=== PATIENT | male | born 1985 | race Caucasian/White ===

== ENCOUNTER 2019-09-30 13:49 | Observation (INO) ==
[2019-09-30] MEDS ORDERED: PROMETHAZINE 25 MG/1 ML VIAL IM STA (15:27)
[2019-09-30] MEDS ORDERED: HYDROmorphone 2 MG/1 ML VIAL IV STA ×2 (15:27→17:08)
[2019-09-30 15:33] LABS: Basophils # 0.1 10*3/uL (0.0-0.2); Basophils % 0.4 % (0.0-0.8); Eosinophils % 0.3 % (0.00-10.9); Hematocrit 42.7 VOL% (42.0-52.0); Hemoglobin 13.6 GM/DL (14.0-18.0); Immature Granulocytes % 1.9 %; Immature Granulocytes Absolute 0.27 #; Lymphocytes % 21.3 % (21.2-54.2); Mean Corpuscular HGB Conc 31.9 GM/DL (32-36); Mean Corpuscular Volume 94.3 FL (87-102); Mean Platelet Volume 10.3 FL (9.6-12.0); Monocytes % 7.2 % (1.7-12.7); Neutrophils % 68.9 % (38.7-73.9); Platelet Count 173 T/CUMM (130-400); Red Blood Count 4.53 MC/CUMM (3.8-5.5); White Blood Count 13.9 T/CUMM (4-12)
[2019-09-30] MEDS ORDERED: DEXTROSE 50% 25 GM/50 ML VIAL IV PRN (15:38)
[2019-09-30] MEDS ORDERED: GLUCAGON 1 MG VIAL IM PRN (15:38)
[2019-09-30 15:53] LABS: Bilirubin,Total 0.4 MG/DL (0.2-1.0); Calcium 8.3 MG/DL (8.5-10.1); Osmolality,Calculated 278.5 MOS/KG (273-304); Total Protein 6.7 G/DL (6.4-8.3)
[2019-09-30 16:04] LABS: PT Patient Result 10.8 SECS (9.8-11.9)
[2019-09-30 16:06] LABS: Thyroid Stimulating Hormone 0.13 uIU/ml (0.358-3.74)
[2019-09-30 17:43] LABS: Lymphocytes,CSF 33 %; Monocytes,CSF 67 %
[2019-09-30 17:44] LABS: Appearance,CSF Clear; Red Blood Cell,CSF < 1 C/CUMM; White Blood Cell,CSF 33 C/CUMM
[2019-09-30] MEDS: HYDROmorphone 2 MG/1 ML VIAL IV PRN ×2 (20:20→23:35)
[2019-09-30] MEDS: PANTOPRAZOLE 40 MG TABLET PO SCH (22:25)
[2019-09-30] MEDS: AMITRIPTYLINE 10 MG TABLET PO SCH (22:25)
[2019-09-30 23:09] LABS: Apearance,Urine Slightly Hazy (Clear); Bacteria,Urine Occasional /HPF (Few); Bilirubin,Urine Negative (Negative); Blood, Urine Negative (Negative); Glucose,Urine (UA) Negative (Negative); Ketones,Urine Negative (Negative); Mucus,Urine Few /LPF (Occasional); Nitrite,Urine Negative (Negative); Protein,Urine Negative; RBC,Urine 10 /HPF (0-4); Squamous Epithelial Cell,Urine Occasional /HPF (0-10); Urine Color Yellow (Yellow); Urine Specific Gravity 1.027 (1.001-1.035); Urine Urobilinogen < 2.0 EU/DL (0.2-1.0); WBC,Urine 1 /HPF (0-6)
[2019-09-30] MEDS: PROMETHAZINE 25 MG/1 ML VIAL IM PRN (23:43)
[2019-10-01] MEDS: HYDROmorphone 2 MG/1 ML VIAL IV PRN ×6 (04:02→23:13)
[2019-10-01] MEDS: PROMETHAZINE 25 MG/1 ML VIAL IM PRN ×2 (06:24→20:17)
[2019-10-01 07:34] LABS: Basophils % 0.2 % (0.0-0.8); Eosinophils # 0.1 10*3/uL (0.0-0.87); Eosinophils % 1.1 % (0.00-10.9); Hematocrit 41.6 VOL% (42.0-52.0); Hemoglobin 13.4 GM/DL (14.0-18.0); Immature Granulocytes % 1.6 %; Immature Granulocytes Absolute 0.21 #; Lymphocytes % 15.4 % (21.2-54.2); Mean Corpuscular HGB Conc 32.2 GM/DL (32-36); Mean Corpuscular Volume 90.6 FL (87-102); Mean Platelet Volume 10.1 FL (9.6-12.0); Monocytes % 6.9 % (1.7-12.7); Neutrophils % 74.8 % (38.7-73.9); Platelet Count 204 T/CUMM (130-400); Red Blood Count 4.59 MC/CUMM (3.8-5.5); Red Cell Distribution Width 13.1 % (9.3-17.3); White Blood Count 12.9 T/CUMM (4-12)
[2019-10-01 07:55] LABS: Albumin 2.9 G/DL (3.4-5.0); Bilirubin,Total 0.9 MG/DL (0.2-1.0); Calcium 8.3 MG/DL (8.5-10.1); Osmolality,Calculated 280.4 MOS/KG (273-304); Total Protein 6.3 G/DL (6.4-8.3)
[2019-10-01] MEDS: PANTOPRAZOLE 40 MG TABLET PO SCH (09:48)
[2019-10-01] MEDS: DIVALPROEX 500 MG TABLET PO SCH ×2 (10:00→20:24)
[2019-10-01] MEDS: ACYCLOVIR INJ 750 MG in SODIUM CHLORIDE 0.9% 250 ML IV SCH ×2 (12:40→17:10)
[2019-10-01] MEDS: INSULIN REGULAR 100 UNIT/ML SUBCUT SCH ×2 (17:03→23:15)
[2019-10-01] MEDS: AMITRIPTYLINE 10 MG TABLET PO SCH (20:24)
[2019-10-01 21:15] VITALS: BP 144/70
== END 2019-10-01 23:52 | disposition home or self-care (01) ==
LOC: N.ED 13:49 → INTOOBSV 19:17 → N.EDINP 19:17 → N.3E 19:23
PROVIDERS: ADMIT Internal Medicine; ATTEND Internal Medicine

== ENCOUNTER 2020-12-15 17:39 | Observation (INO) ==
[2020-12-15] MEDS ORDERED: SODIUM CHLORIDE 0.9% 1,000 ML IV STA (19:17)
[2020-12-15] MEDS ORDERED: ONDANSETRON 4 MG/2 ML VIAL IV STA (19:17)
[2020-12-15 20:33] LABS: Basophils # 0.1 10*3/uL (0.0-0.2); Basophils % 0.6 % (0.0-0.8); Eosinophils # 0.5 10*3/uL (0.0-0.87); Eosinophils % 4.7 % (0.00-10.9); Hematocrit 47.2 VOL% (42.0-52.0); Hemoglobin 15.5 GM/DL (14.0-18.0); Immature Granulocytes % 0.8 %; Immature Granulocytes Absolute 0.08 #; Lymphocytes # 2.8 10*3/uL (1.4-4.0); Lymphocytes % 27.9 % (21.2-54.2); Mean Corpuscular HGB Conc 32.8 GM/DL (32-36); Mean Corpuscular Volume 93.1 FL (87-102); Mean Platelet Volume 10.7 FL (9.6-12.0); Monocytes % 8.4 % (1.7-12.7); Neutrophils % 57.6 % (38.7-73.9); Platelet Count 328 T/CUMM (130-400); Red Blood Count 5.07 MC/CUMM (3.8-5.5); Red Cell Distribution Width 14.8 % (9.3-17.3); White Blood Count 10.1 T/CUMM (4-12)
[2020-12-15 20:45] LABS: Bilirubin,Urine Negative (Negative); Blood, Urine Negative (Negative); Glucose,Urine (UA) >=500 mg/dL (Negative); Ketones,Urine Negative (Negative); Mucus,Urine Occasional /LPF (Occasional); Nitrite,Urine Negative (Negative); Protein,Urine Negative; RBC,Urine 1 /HPF (0-4); Squamous Epithelial Cell,Urine Occasional /HPF (0-10); Urine Appearance CLEAR (Clear); Urine Color Straw (Yellow); Urine Specific Gravity 1.029 (1.001-1.035); Urine Urobilinogen < 2.0 EU/DL (0.2-1.0)
[2020-12-15 20:56] LABS: Albumin 3.9 G/DL (3.4-5.0); Bilirubin,Total 0.5 MG/DL (0.20-1.00); Calcium 9.6 MG/DL (8.5-10.1); Osmolality,Calculated 282.9 MOS/KG (273-304); Potassium 3.8 MMOL/L (3.5-5.1)
[2020-12-15] MEDS ORDERED: INSULIN REGULAR 100 UNIT/ML SUBCUT STA ×3 (21:27→23:06)
[2020-12-15] MEDS ORDERED: PIPERACILLIN/TAZOBACTAM 3,375 MG in SODIUM CHLORIDE 0.9% 100 ML IV STA (21:27)
[2020-12-16] MEDS ORDERED: SODIUM CHLORIDE 0.9% 1,000 ML IV STA (00:47)
[2020-12-16] MEDS ORDERED: FAMOTIDINE 20 MG/2 ML VIAL IV STA (00:49)
[2020-12-16] MEDS ORDERED: diphenhydrAMINE 50 MG/1 ML VIAL IV STA (00:50)
[2020-12-16] MEDS ORDERED: diphenhydrAMINE 50 MG/1 ML VIAL ONE (00:51)
[2020-12-16] MEDS ORDERED: ACETAMINOPHEN 325 MG TABLET PO PRN (01:31)
[2020-12-16] MEDS ORDERED: ONDANSETRON 4 MG/2 ML VIAL IV PRN (01:31)
[2020-12-16] MEDS ORDERED: hydrALAZINE 20 MG/1 ML VIAL IV PRN (01:31)
[2020-12-16] MEDS ORDERED: DEXTROSE 50% 25 GM/50 ML VIAL IV PRN (01:31)
[2020-12-16] MEDS ORDERED: GLUCAGON 1 MG VIAL IM PRN (01:31)
[2020-12-16] MEDS: SODIUM CHLORIDE 0.9% 1,000 ML IV SCH ×3 (02:34→17:30)
[2020-12-16 04:56] LABS: PT Patient Result 11.2 SECS (10.5-12.0)
[2020-12-16 05:11] LABS: Albumin 3.5 G/DL (3.4-5.0); Bilirubin,Total 0.5 MG/DL (0.20-1.00); Calcium 8.9 MG/DL (8.5-10.1); Osmolality,Calculated 275.5 MOS/KG (273-304); Potassium 3.7 MMOL/L (3.5-5.1); Risk Ratio 6.37; Thyroid Stimulating Hormone 1.75 uIU/ml (0.358-3.74); Total Protein 7.4 G/DL (6.4-8.2); VLDL Cholesterol 41.2 MG/DL
[2020-12-16 05:41] LABS: Hepatitis B Surface Ag Quant < 0.10 Index; Hepatitis B Surface Ag Result Non-Reactive (NonReactive); Hepatitis C Virus Ab Quant 0.03 Index; Hepatitis C Virus Ab Result Non-Reactive (NonReactive)
[2020-12-16] MEDS: INSULIN LISPRO 100 UNIT/ML SUBCUT SCH ×8 (05:44→21:44)
[2020-12-16] MEDS ORDERED: INSULIN LISPRO 100 UNIT/ML SUBCUT SCH (07:30)
[2020-12-16] MEDS ORDERED: INSULIN GLARGINE 100 UNIT/ML SUBCUT SCH (09:00)
[2020-12-16] MEDS: ENOXAPARIN 40 MG/0.4 ML SYRINGE SUBCUT SCH (09:22)
[2020-12-16] MEDS: PANTOPRAZOLE 40 MG TABLET PO SCH (09:23)
[2020-12-16] MEDS: hydroCHLOROthiazide 25 MG TABLET PO SCH (13:30)
[2020-12-16] MEDS ORDERED: TOPIRAMATE 25 MG TABLET PO PRN (15:27)
[2020-12-16] MEDS ORDERED: INFLUENZA VIRUS VACCINE 0.5 ML SYRINGE IM ONE (17:18)
[2020-12-16] MEDS: NYSTATIN 500,000 UNIT/5 ML UDCUP PO SCH ×2 (17:30→21:45)
[2020-12-16] MEDS: EZETIMIBE 10 MG TABLET PO SCH (21:45)
[2020-12-16] MEDS: AMITRIPTYLINE 50 MG TABLET PO SCH (21:45)
[2020-12-16] MEDS: ACETAZOLAMIDE 500 MG PO SCH (21:45)
[2020-12-16] MEDS: MUPIROCIN 2% OINT 22 GM TUBE TOP SCH (21:45)
[2020-12-16] MEDS: NYSTATIN CREAM 15 GM TUBE TOP SCH (21:45)
[2020-12-17] MEDS: INSULIN LISPRO 100 UNIT/ML SUBCUT SCH ×9 (00:24→20:20)
[2020-12-17] MEDS: SODIUM CHLORIDE 0.9% 1,000 ML IV SCH ×3 (02:30→17:40)
[2020-12-17 06:46] LABS: Basophils % 0.2 % (0.0-0.8); Eosinophils # 0.3 10*3/uL (0.0-0.87); Hematocrit 39.9 VOL% (42.0-52.0); Hemoglobin 13.1 GM/DL (14.0-18.0); Immature Granulocytes % 0.7 %; Immature Granulocytes Absolute 0.04 #; Lymphocytes # 1.6 10*3/uL (1.4-4.0); Lymphocytes % 28.1 % (21.2-54.2); Mean Corpuscular HGB Conc 32.8 GM/DL (32-36); Mean Platelet Volume 10.1 FL (9.6-12.0); Monocytes % 8.7 % (1.7-12.7); Neutrophils % 57.3 % (38.7-73.9); Platelet Count 176 T/CUMM (130-400); Red Blood Count 4.29 MC/CUMM (3.8-5.5); Red Cell Distribution Width 14.9 % (9.3-17.3); White Blood Count 5.8 T/CUMM (4-12)
[2020-12-17 07:05] LABS: Albumin 2.9 G/DL (3.4-5.0); Bilirubin,Total 0.8 MG/DL (0.20-1.00); Osmolality,Calculated 280.8 MOS/KG (273-304); Potassium 3.4 MMOL/L (3.5-5.1); Total Protein 6.5 G/DL (6.4-8.2)
[2020-12-17] MEDS ORDERED: POTASSIUM CHLORIDE 20 MEQ TABLET PO ONE (07:48)
[2020-12-17] MEDS ORDERED: MAGNESIUM SULF RIDER 2 GM/50 ML PREMIX IV ONE (07:48)
[2020-12-17] MEDS: INSULIN GLARGINE 100 UNIT/ML SUBCUT SCH (09:24)
[2020-12-17] MEDS: NYSTATIN 500,000 UNIT/5 ML UDCUP PO SCH ×4 (09:25→20:19)
[2020-12-17] MEDS: ENOXAPARIN 40 MG/0.4 ML SYRINGE SUBCUT SCH (09:27)
[2020-12-17] MEDS: OLMESARTAN 20 MG TABLET PO SCH (09:27)
[2020-12-17] MEDS: hydroCHLOROthiazide 25 MG TABLET PO SCH (09:27)
[2020-12-17] MEDS: PANTOPRAZOLE 40 MG TABLET PO SCH (09:27)
[2020-12-17] MEDS: NITROFURANTOIN MACRO/MONO 100 MG CAPSULE PO SCH (09:27)
[2020-12-17] MEDS: MUPIROCIN 2% OINT 22 GM TUBE TOP SCH ×3 (09:28→21:05)
[2020-12-17] MEDS: NYSTATIN CREAM 15 GM TUBE TOP SCH ×2 (09:28→20:21)
[2020-12-17] MEDS: ACETAZOLAMIDE 500 MG PO SCH ×2 (09:28→20:20)
[2020-12-17] MEDS: AMITRIPTYLINE 50 MG TABLET PO SCH (20:19)
[2020-12-17] MEDS: EZETIMIBE 10 MG TABLET PO SCH (20:19)
[2020-12-18] MEDS: INSULIN LISPRO 100 UNIT/ML SUBCUT SCH ×9 (00:13→21:53)
[2020-12-18] MEDS: SODIUM CHLORIDE 0.9% 1,000 ML IV SCH ×2 (05:05→12:08)
[2020-12-18 05:08] LABS: Basophils % 0.2 % (0.0-0.8); Eosinophils # 0.2 10*3/uL (0.0-0.87); Eosinophils % 3.8 % (0.00-10.9); Hematocrit 40.9 VOL% (42.0-52.0); Hemoglobin 13.2 GM/DL (14.0-18.0); Immature Granulocytes % 0.8 %; Immature Granulocytes Absolute 0.05 #; Lymphocytes # 1.6 10*3/uL (1.4-4.0); Lymphocytes % 26.8 % (21.2-54.2); Mean Corpuscular HGB Conc 32.3 GM/DL (32-36); Mean Corpuscular Volume 94.2 FL (87-102); Mean Platelet Volume 10.3 FL (9.6-12.0); Monocytes % 8.6 % (1.7-12.7); Neutrophils % 59.8 % (38.7-73.9); Platelet Count 184 T/CUMM (130-400); Red Blood Count 4.34 MC/CUMM (3.8-5.5); Red Cell Distribution Width 14.6 % (9.3-17.3); White Blood Count 6.1 T/CUMM (4-12)
[2020-12-18 05:40] LABS: Albumin 2.9 G/DL (3.4-5.0); Bilirubin,Total 0.6 MG/DL (0.20-1.00); Osmolality,Calculated 277.8 MOS/KG (273-304); Potassium 3.2 MMOL/L (3.5-5.1); Total Protein 6.6 G/DL (6.4-8.2)
[2020-12-18] MEDS ORDERED: POTASSIUM CHLORIDE 20 MEQ TABLET PO ONE (07:13)
[2020-12-18] MEDS: INSULIN GLARGINE 100 UNIT/ML SUBCUT SCH ×2 (09:12→12:22)
[2020-12-18] MEDS: NYSTATIN 500,000 UNIT/5 ML UDCUP PO SCH ×3 (09:13→16:36)
[2020-12-18] MEDS: OLMESARTAN 20 MG TABLET PO SCH (09:13)
[2020-12-18] MEDS: NITROFURANTOIN MACRO/MONO 100 MG CAPSULE PO SCH (09:14)
[2020-12-18] MEDS: ENOXAPARIN 40 MG/0.4 ML SYRINGE SUBCUT SCH (09:14)
[2020-12-18] MEDS: hydroCHLOROthiazide 25 MG TABLET PO SCH (09:14)
[2020-12-18] MEDS: PANTOPRAZOLE 40 MG TABLET PO SCH (09:14)
[2020-12-18] MEDS: ACETAZOLAMIDE 500 MG PO SCH ×2 (09:15→21:53)
[2020-12-18] MEDS: NYSTATIN CREAM 15 GM TUBE TOP SCH (09:56)
[2020-12-18] MEDS: MUPIROCIN 2% OINT 22 GM TUBE TOP SCH (09:56)
[2020-12-18] MEDS: AMITRIPTYLINE 50 MG TABLET PO SCH (21:52)
[2020-12-18] MEDS: EZETIMIBE 10 MG TABLET PO SCH (21:52)
[2020-12-19] MEDS: MUPIROCIN 2% OINT 22 GM TUBE TOP SCH ×3 (00:16→22:25)
[2020-12-19] MEDS: NYSTATIN CREAM 15 GM TUBE TOP SCH ×3 (00:16→22:28)
[2020-12-19] MEDS: NYSTATIN 500,000 UNIT/5 ML UDCUP PO SCH ×5 (00:16→22:28)
[2020-12-19 04:53] LABS: Basophils % 0.5 % (0.0-0.8); Eosinophils # 0.3 10*3/uL (0.0-0.87); Eosinophils % 4.5 % (0.00-10.9); Hematocrit 42.1 VOL% (42.0-52.0); Hemoglobin 13.7 GM/DL (14.0-18.0); Immature Granulocytes Absolute 0.06 #; Lymphocytes # 1.8 10*3/uL (1.4-4.0); Lymphocytes % 28.8 % (21.2-54.2); Mean Corpuscular HGB Conc 32.5 GM/DL (32-36); Mean Platelet Volume 10.3 FL (9.6-12.0); Neutrophils % 56.2 % (38.7-73.9); Platelet Count 204 T/CUMM (130-400); Red Blood Count 4.48 MC/CUMM (3.8-5.5); Red Cell Distribution Width 14.7 % (9.3-17.3); White Blood Count 6.2 T/CUMM (4-12)
[2020-12-19 05:18] LABS: Bilirubin,Total 0.5 MG/DL (0.20-1.00); Calcium 8.7 MG/DL (8.5-10.1); Osmolality,Calculated 276.1 MOS/KG (273-304); Potassium 3.7 MMOL/L (3.5-5.1)
[2020-12-19] MEDS: ENOXAPARIN 40 MG/0.4 ML SYRINGE SUBCUT SCH (08:18)
[2020-12-19] MEDS: NITROFURANTOIN MACRO/MONO 100 MG CAPSULE PO SCH (08:18)
[2020-12-19] MEDS: PANTOPRAZOLE 40 MG TABLET PO SCH (08:18)
[2020-12-19] MEDS: OLMESARTAN 20 MG TABLET PO SCH (08:19)
[2020-12-19] MEDS: INSULIN GLARGINE 100 UNIT/ML SUBCUT SCH ×2 (08:19→09:28)
[2020-12-19] MEDS: hydroCHLOROthiazide 25 MG TABLET PO SCH (08:21)
[2020-12-19] MEDS: INSULIN LISPRO 100 UNIT/ML SUBCUT SCH ×7 (08:23→22:25)
[2020-12-19] MEDS: ACETAZOLAMIDE 500 MG PO SCH ×2 (08:35→22:28)
[2020-12-19] MEDS: AMITRIPTYLINE 50 MG TABLET PO SCH (22:24)
[2020-12-19] MEDS: EZETIMIBE 10 MG TABLET PO SCH (22:24)
[2020-12-20 04:44] LABS: Basophils % 0.5 % (0.0-0.8); Eosinophils # 0.3 10*3/uL (0.0-0.87); Eosinophils % 4.5 % (0.00-10.9); Hematocrit 46.1 VOL% (42.0-52.0); Hemoglobin 14.9 GM/DL (14.0-18.0); Immature Granulocytes % 1.1 %; Immature Granulocytes Absolute 0.07 #; Lymphocytes # 1.7 10*3/uL (1.4-4.0); Lymphocytes % 25.7 % (21.2-54.2); Mean Corpuscular HGB Conc 32.3 GM/DL (32-36); Mean Corpuscular Volume 94.9 FL (87-102); Mean Platelet Volume 10.3 FL (9.6-12.0); Neutrophils % 60.2 % (38.7-73.9); Platelet Count 235 T/CUMM (130-400); Red Blood Count 4.86 MC/CUMM (3.8-5.5); Red Cell Distribution Width 14.7 % (9.3-17.3); White Blood Count 6.6 T/CUMM (4-12)
[2020-12-20 05:16] LABS: Albumin 3.2 G/DL (3.4-5.0); Bilirubin,Total 0.7 MG/DL (0.20-1.00); Osmolality,Calculated 274.2 MOS/KG (273-304); Potassium 3.5 MMOL/L (3.5-5.1); Total Protein 7.4 G/DL (6.4-8.2)
[2020-12-20 07:30] VITALS: BP 149/78
[2020-12-20] MEDS: NITROFURANTOIN MACRO/MONO 100 MG CAPSULE PO SCH (08:57)
[2020-12-20] MEDS: ENOXAPARIN 40 MG/0.4 ML SYRINGE SUBCUT SCH (08:57)
[2020-12-20] MEDS: OLMESARTAN 20 MG TABLET PO SCH (08:57)
[2020-12-20] MEDS: hydroCHLOROthiazide 25 MG TABLET PO SCH (08:58)
[2020-12-20] MEDS: INSULIN GLARGINE 100 UNIT/ML SUBCUT SCH (08:59)
[2020-12-20] MEDS: MUPIROCIN 2% OINT 22 GM TUBE TOP SCH (08:59)
[2020-12-20] MEDS: NYSTATIN CREAM 15 GM TUBE TOP SCH (09:00)
[2020-12-20] MEDS: INSULIN LISPRO 100 UNIT/ML SUBCUT SCH ×2 (09:00)
[2020-12-20] MEDS: PANTOPRAZOLE 40 MG TABLET PO SCH (09:01)
[2020-12-20] MEDS: ACETAZOLAMIDE 500 MG PO SCH (09:01)
[2020-12-20] MEDS: NYSTATIN 500,000 UNIT/5 ML UDCUP PO SCH (09:01)
[2020-12-20] MEDS ORDERED: INSULIN GLARGINE 100 UNIT/ML SUBCUT ONE (09:36)
== END 2020-12-20 11:30 | disposition home health service (06) ==
LOC: N.ED 17:39 → N.EDINP 17:39 → SUATTDRO 12-16 01:31 → N.EDINP 12-16 16:46 → N.5E 12-16 17:02
PROVIDERS: ADMIT Internal Medicine; ATTEND Internal Medicine

== ENCOUNTER 2021-03-25 06:21 | Inpatient (IN) ==
[2021-03-25] MEDS ORDERED: HYDROmorphone 2 MG/1 ML VIAL IV STA ×4 (07:06→13:49)
[2021-03-25] MEDS ORDERED: ONDANSETRON 4 MG/2 ML VIAL IV STA (07:07)
[2021-03-25 07:39] LABS: Basophils % 0.2 % (0.0-0.8); Eosinophils % 0.2 % (0.00-10.9); Hemoglobin 13.2 GM/DL (14.0-18.0); Immature Granulocytes % 0.8 %; Lymphocytes # 1.6 10*3/uL (1.4-4.0); Lymphocytes % 13.2 % (21.2-54.2); Mean Corpuscular HGB Conc 31.4 GM/DL (32-36); Mean Corpuscular Volume 94.4 FL (87-102); Mean Platelet Volume 9.8 FL (9.6-12.0); Neutrophils % 80.6 % (38.7-73.9); Platelet Count 252 T/CUMM (130-400); Red Blood Count 4.45 MC/CUMM (3.8-5.5); Red Cell Distribution Width 13.4 % (9.3-17.3); White Blood Count 12.1 T/CUMM (4-12)
[2021-03-25 07:52] LABS: Calcium 8.6 MG/DL (8.5-10.1); Osmolality,Calculated 281.3 MOS/KG (273-304); Potassium 3.5 MMOL/L (3.5-5.1)
[2021-03-25] MEDS ORDERED: PROMETHAZINE 25 MG/1 ML VIAL IM STA ×2 (10:08→12:03)
[2021-03-25 10:48] LABS: PT Patient Result 11.5 SECS (10.5-12.0); Partial Thromboplastin Time 25.3 SECS (23.8-32.1)
[2021-03-25] MEDS ORDERED: PROMETHAZINE INJ 25 MG in SODIUM CHLORIDE 0.9% 50 ML IV STA (13:49)
[2021-03-25] MEDS ORDERED: DEXTROSE 50% 25 GM/50 ML SYRINGE IV PRN (14:11)
[2021-03-25] MEDS ORDERED: PROMETHAZINE 25 MG/1 ML VIAL IV PRN (14:11)
[2021-03-25] MEDS ORDERED: GLUCAGON 1 MG VIAL IM PRN ×2 (14:11)
[2021-03-25] MEDS ORDERED: ACETAMINOPHEN 325 MG TABLET PO PRN (14:11)
[2021-03-25] MEDS ORDERED: DEXTROSE 50% 25 GM/50 ML VIAL IV PRN (14:11)
[2021-03-25] MEDS ORDERED: HYDROmorphone 2 MG TABLET PO PRN (14:21)
[2021-03-25] MEDS ORDERED: ENOXAPARIN 40 MG/0.4 ML SYRINGE SUBCUT SCH (14:30)
[2021-03-25] MEDS: PROMETHAZINE 25 MG/1 ML VIAL IM PRN ×3 (16:53→23:25)
[2021-03-25] MEDS: INSULIN REGULAR 100 UNIT/ML SUBCUT SCH ×2 (16:57→20:10)
[2021-03-25] MEDS: HYDROmorphone 2 MG/1 ML VIAL IV PRN ×2 (19:43→23:24)
[2021-03-26] MEDS ORDERED: ALPRAZolam 0.5 MG TABLET PO PRN (02:20)
[2021-03-26] MEDS: PROMETHAZINE 25 MG/1 ML VIAL IM PRN (03:14)
[2021-03-26] MEDS: HYDROmorphone 2 MG/1 ML VIAL IV PRN ×7 (03:15→22:08)
[2021-03-26 05:49] LABS: Basophils % 0.2 % (0.0-0.8); Hematocrit 44.3 VOL% (42.0-52.0); Hemoglobin 13.7 GM/DL (14.0-18.0); Immature Granulocytes Absolute 0.13 #; Lymphocytes # 1.4 10*3/uL (1.4-4.0); Lymphocytes % 11.1 % (21.2-54.2); Mean Corpuscular HGB Conc 30.9 GM/DL (32-36); Mean Corpuscular Volume 95.3 FL (87-102); Mean Platelet Volume 10.2 FL (9.6-12.0); Monocytes % 4.4 % (1.7-12.7); Neutrophils % 83.3 % (38.7-73.9); Platelet Count 273 T/CUMM (130-400); Red Blood Count 4.65 MC/CUMM (3.8-5.5); Red Cell Distribution Width 13.4 % (9.3-17.3); White Blood Count 12.6 T/CUMM (4-12)
[2021-03-26 05:55] LABS: Alanine Aminotransferase 47 U/L (16-61); Alkaline Phosphatase 53 U/L (45-117); Aspartate Amino Transferase 23 U/L (0-37); Bilirubin,Total < 0.39 MG/DL (0.20-1.00); Blood Urea Nitrogen 9 MG/DL (7-18); Calcium 8.6 MG/DL (8.5-10.1); Carbon Dioxide 25 MMOL/L (21-32); Estimated Glom Filtration Rate 200 ML/MIN; Glucose 116 MG/DL (74-106); Osmolality,Calculated 282.1 MOS/KG (273-304); Potassium 3.7 MMOL/L (3.5-5.1); Sodium 142 MMOL/L (136-145); Total Protein 7.3 G/DL (6.4-8.2)
[2021-03-26] MEDS: INSULIN REGULAR 100 UNIT/ML SUBCUT SCH ×4 (07:38→22:15)
[2021-03-26] MEDS: ONDANSETRON 4 MG/2 ML VIAL IV PRN ×5 (10:22→22:04)
[2021-03-26] MEDS ORDERED: carBAMazepine 200 MG TABLET PO PRN (13:33)
[2021-03-26] MEDS: INSULIN LISPRO 100 UNIT/ML SUBCUT SCH (17:02)
[2021-03-26] MEDS: AMITRIPTYLINE 50 MG TABLET PO SCH (20:30)
[2021-03-26] MEDS: EZETIMIBE 10 MG TABLET PO SCH (20:30)
[2021-03-27] MEDS: ONDANSETRON 4 MG/2 ML VIAL IV PRN ×7 (01:01→23:15)
[2021-03-27] MEDS: HYDROmorphone 2 MG/1 ML VIAL IV PRN ×8 (01:04→23:15)
[2021-03-27] MEDS: INSULIN REGULAR 100 UNIT/ML SUBCUT SCH ×4 (07:48→21:50)
[2021-03-27] MEDS: INSULIN LISPRO 100 UNIT/ML SUBCUT SCH ×3 (07:48→16:10)
[2021-03-27] MEDS ORDERED: SEMAGLUTIDE 14 MG PO SCH (09:00)
[2021-03-27] MEDS: hydroCHLOROthiazide 25 MG TABLET PO SCH (09:30)
[2021-03-27] MEDS: OLMESARTAN 5 MG TABLET PO SCH (12:53)
[2021-03-27] MEDS: AMITRIPTYLINE 50 MG TABLET PO SCH (21:07)
[2021-03-27] MEDS: EZETIMIBE 10 MG TABLET PO SCH (21:07)
[2021-03-28] MEDS: HYDROmorphone 2 MG/1 ML VIAL IV PRN ×6 (02:17→20:31)
[2021-03-28] MEDS: ONDANSETRON 4 MG/2 ML VIAL IV PRN ×5 (02:17→16:09)
[2021-03-28 06:41] LABS: Basophils % 0.3 % (0.0-0.8); Hematocrit 42.6 VOL% (42.0-52.0); Hemoglobin 13.2 GM/DL (14.0-18.0); Lymphocytes # 1.8 10*3/uL (1.4-4.0); Lymphocytes % 18.5 % (21.2-54.2); Mean Corpuscular Volume 93.6 FL (87-102); Mean Platelet Volume 10.1 FL (9.6-12.0); Monocytes % 8.9 % (1.7-12.7); NRBC # 0.02 10*3/uL; Neutrophils % 70.3 % (38.7-73.9); Platelet Count 257 T/CUMM (130-400); Red Blood Count 4.55 MC/CUMM (3.8-5.5); Red Cell Distribution Width 13.5 % (9.3-17.3); White Blood Count 9.8 T/CUMM (4-12)
[2021-03-28 07:00] LABS: Calcium 8.1 MG/DL (8.5-10.1); Potassium 3.3 MMOL/L (3.5-5.1)
[2021-03-28] MEDS ORDERED: POTASSIUM CHLORIDE 20 MEQ TABLET PO ONE (07:07)
[2021-03-28] MEDS: INSULIN LISPRO 100 UNIT/ML SUBCUT SCH ×3 (07:38→16:03)
[2021-03-28] MEDS: INSULIN REGULAR 100 UNIT/ML SUBCUT SCH ×4 (07:38→20:35)
[2021-03-28] MEDS: PANTOPRAZOLE 40 MG TABLET PO SCH (08:30)
[2021-03-28] MEDS: hydroCHLOROthiazide 25 MG TABLET PO SCH (08:31)
[2021-03-28] MEDS: OLMESARTAN 5 MG TABLET PO SCH (08:31)
[2021-03-28] MEDS: oxyCODONE/ACETAMINOPHEN 5-325 MG TABLET PO PRN (13:28)
[2021-03-28] MEDS ORDERED: LORazepam 1 MG TABLET PO PRN (13:44)
[2021-03-28] MEDS: GABAPENTIN 300 MG CAPSULE PO SCH (20:23)
[2021-03-28] MEDS: EZETIMIBE 10 MG TABLET PO SCH (20:23)
[2021-03-28] MEDS: AMITRIPTYLINE 50 MG TABLET PO SCH (20:23)
[2021-03-28] MEDS: KETOROLAC 30 MG/1 ML VIAL IV SCH (20:27)
[2021-03-29] MEDS: HYDROmorphone 2 MG/1 ML VIAL IV PRN ×3 (02:30→12:24)
[2021-03-29 05:10] LABS: Basophils % 0.4 % (0.0-0.8); Eosinophils # 0.1 10*3/uL (0.0-0.87); Eosinophils % 1.1 % (0.00-10.9); Hematocrit 43.3 VOL% (42.0-52.0); Hemoglobin 13.6 GM/DL (14.0-18.0); Immature Granulocytes % 1.8 %; Immature Granulocytes Absolute 0.15 #; Lymphocytes # 2.1 10*3/uL (1.4-4.0); Mean Corpuscular HGB Conc 31.4 GM/DL (32-36); Mean Corpuscular Volume 92.7 FL (87-102); Mean Platelet Volume 10.2 FL (9.6-12.0); Monocytes % 8.3 % (1.7-12.7); NRBC # 0.02 10*3/uL; Neutrophils % 63.4 % (38.7-73.9); Platelet Count 241 T/CUMM (130-400); Red Blood Count 4.67 MC/CUMM (3.8-5.5); Red Cell Distribution Width 13.5 % (9.3-17.3); White Blood Count 8.2 T/CUMM (4-12)
[2021-03-29 05:30] LABS: Calcium 8.1 MG/DL (8.5-10.1); Osmolality,Calculated 279.3 MOS/KG (273-304); Potassium 3.1 MMOL/L (3.5-5.1)
[2021-03-29] MEDS: POTASSIUM CHLORIDE 20 MEQ TABLET PO PRN ×2 (05:40→06:37)
[2021-03-29] MEDS: INSULIN REGULAR 100 UNIT/ML SUBCUT SCH ×2 (07:22→12:27)
[2021-03-29] MEDS: INSULIN LISPRO 100 UNIT/ML SUBCUT SCH ×2 (09:52→12:28)
[2021-03-29] MEDS: oxyCODONE/ACETAMINOPHEN 5-325 MG TABLET PO PRN (09:52)
[2021-03-29] MEDS: OLMESARTAN 5 MG TABLET PO SCH (09:52)
[2021-03-29] MEDS: GABAPENTIN 300 MG CAPSULE PO SCH (09:52)
[2021-03-29] MEDS: PANTOPRAZOLE 40 MG TABLET PO SCH (09:52)
[2021-03-29] MEDS: KETOROLAC 30 MG/1 ML VIAL IV SCH (09:52)
[2021-03-29] MEDS: hydroCHLOROthiazide 25 MG TABLET PO SCH (09:55)
[2021-03-29 11:47] VITALS: BP 144/64
== END 2021-03-29 13:56 | disposition home or self-care (01) | DRG 644 ==
LOC: EDBD → EDUNIT# → N.ED 06:21 → SUATTDRO 14:11 → N.3E 14:11
PROVIDERS: ADMIT Internal Medicine Geriatric Medicine; ATTEND Internal Medicine

== ENCOUNTER 2021-06-02 13:21 | Observation (INO) ==
[2021-06-02] MEDS ORDERED: PROMETHAZINE INJ 25 MG in SODIUM CHLORIDE 0.9% 50 ML IV STA (18:50)
[2021-06-02] MEDS ORDERED: MEPERIDINE 25 MG/1 ML VIAL IV STA (18:50)
[2021-06-02] MEDS ORDERED: SODIUM CHLORIDE 0.9% 1,000 ML IV STA (18:50)
[2021-06-02] MEDS ORDERED: PROMETHAZINE 25 MG/1 ML VIAL ONE (19:12)
[2021-06-02 19:21] LABS: Basophils % 0.1 % (0.0-0.8); Hematocrit 50.2 VOL% (42.0-52.0); Hemoglobin 16.2 GM/DL (14.0-18.0); Immature Granulocytes % 1.3 %; Immature Granulocytes Absolute 0.18 #; Lymphocytes # 1.6 10*3/uL (1.4-4.0); Lymphocytes % 11.1 % (21.2-54.2); Mean Corpuscular HGB Conc 32.3 GM/DL (32-36); Mean Corpuscular Volume 93.1 FL (87-102); Mean Platelet Volume 9.6 FL (9.6-12.0); Monocytes % 5.6 % (1.7-12.7); Neutrophils % 81.9 % (38.7-73.9); Platelet Count 311 T/CUMM (130-400); Red Blood Count 5.39 MC/CUMM (3.8-5.5); Red Cell Distribution Width 15.6 % (9.3-17.3)
[2021-06-02 19:46] LABS: Albumin 3.9 G/DL (3.4-5.0); Bilirubin,Total 0.4 MG/DL (0.20-1.00); Calcium 9.5 MG/DL (8.5-10.1); Osmolality,Calculated 276.8 MOS/KG (273-304); Potassium 3.8 MMOL/L (3.5-5.1)
[2021-06-02] MEDS ORDERED: ACETAMINOPHEN 325 MG TABLET PO PRN (19:48)
[2021-06-02] MEDS ORDERED: GLUCAGON 1 MG VIAL IM PRN ×2 (19:48)
[2021-06-02] MEDS ORDERED: DEXTROSE 50% 25 GM/50 ML VIAL IV PRN (19:48)
[2021-06-02] MEDS ORDERED: DEXTROSE 10% 250 ML BAG IV PRN (19:57)
[2021-06-02] MEDS: ENOXAPARIN 40 MG/0.4 ML SYRINGE SUBCUT SCH (21:01)
[2021-06-02] MEDS: INSULIN REGULAR 100 UNIT/ML SUBCUT SCH (21:26)
[2021-06-02 21:31] LABS: Hepatitis B Core IgM Quant 0.16 Index; Hepatitis B Surface Ag Quant 0.14 Index; Hepatitis B Surface Ag Result Non-Reactive (NonReactive); Hepatitis C Virus Ab Quant 0.04 Index; Hepatitis C Virus Ab Result Non-Reactive (NonReactive)
[2021-06-02] MEDS: SODIUM CHLORIDE 0.9% 1,000 ML IV SCH (22:17)
[2021-06-02] MEDS: hydrALAZINE 20 MG/1 ML VIAL IV PRN (22:28)
[2021-06-02] MEDS: HYDROmorphone 1 MG/1 ML SYRINGE IV PRN (22:29)
[2021-06-02] MEDS: ONDANSETRON 4 MG/2 ML VIAL IV PRN (22:55)
[2021-06-02] MEDS: PROMETHAZINE INJ 12.5 MG in SODIUM CHLORIDE 0.9% 50 ML IV PRN (23:26)
[2021-06-03] MEDS: HYDROmorphone 1 MG/1 ML SYRINGE IV PRN ×6 (01:34→21:04)
[2021-06-03] MEDS: ONDANSETRON 4 MG/2 ML VIAL IV PRN ×5 (02:03→21:04)
[2021-06-03] MEDS: PROMETHAZINE INJ 12.5 MG in SODIUM CHLORIDE 0.9% 50 ML IV PRN (04:28)
[2021-06-03 05:24] LABS: Basophils % 0.2 % (0.0-0.8); Hematocrit 50.5 VOL% (42.0-52.0); Hemoglobin 16.2 GM/DL (14.0-18.0); Immature Granulocytes Absolute 0.14 #; Lymphocytes # 1.4 10*3/uL (1.4-4.0); Lymphocytes % 10.5 % (21.2-54.2); Mean Corpuscular HGB Conc 32.1 GM/DL (32-36); Mean Corpuscular Volume 94.2 FL (87-102); Mean Platelet Volume 9.6 FL (9.6-12.0); Monocytes % 9.1 % (1.7-12.7); NRBC # 0.02 10*3/uL; Neutrophils % 79.2 % (38.7-73.9); Platelet Count 277 T/CUMM (130-400); Red Blood Count 5.36 MC/CUMM (3.8-5.5); Red Cell Distribution Width 15.6 % (9.3-17.3); White Blood Count 13.6 T/CUMM (4-12)
[2021-06-03 05:52] LABS: Albumin 3.4 G/DL (3.4-5.0); Bilirubin,Total 0.4 MG/DL (0.20-1.00); Calcium 8.9 MG/DL (8.5-10.1); Osmolality,Calculated 277.7 MOS/KG (273-304); Potassium 3.6 MMOL/L (3.5-5.1); Risk Ratio 4.79; Total Protein 7.4 G/DL (6.4-8.2); VLDL Cholesterol 24.4 MG/DL
[2021-06-03] MEDS: INSULIN REGULAR 100 UNIT/ML SUBCUT SCH ×4 (07:34→20:31)
[2021-06-03] MEDS: PANTOPRAZOLE 40 MG TABLET PO SCH (09:01)
[2021-06-03] MEDS: hydrALAZINE 20 MG/1 ML VIAL IV PRN (13:07)
[2021-06-03] MEDS: SODIUM CHLORIDE 0.9% 1,000 ML IV SCH ×2 (19:58→22:21)
[2021-06-03] MEDS: ENOXAPARIN 40 MG/0.4 ML SYRINGE SUBCUT SCH (20:31)
[2021-06-04] MEDS: HYDROmorphone 1 MG/1 ML SYRINGE IV PRN ×6 (01:07→23:06)
[2021-06-04] MEDS: ONDANSETRON 4 MG/2 ML VIAL IV PRN ×6 (01:08→21:43)
[2021-06-04 06:31] LABS: Free T4 (Free Thyroxine) 0.62 NG/DL (0.76-1.46)
[2021-06-04] MEDS: PANTOPRAZOLE 40 MG TABLET PO SCH (09:08)
[2021-06-04] MEDS: INSULIN REGULAR 100 UNIT/ML SUBCUT SCH ×4 (09:26→20:12)
[2021-06-04] MEDS: CETIRIZINE 10 MG TABLET PO SCH (11:10)
[2021-06-04] MEDS: FLUTICASONE 50 MCG NASAL SPRAY 16 GM BOTTLE BOTH NARES SCH ×2 (11:11→20:12)
[2021-06-04] MEDS: oxyCODONE/ACETAMINOPHEN 5-325 MG TABLET PO PRN ×3 (11:37→20:11)
[2021-06-04] MEDS: ENOXAPARIN 40 MG/0.4 ML SYRINGE SUBCUT SCH (20:12)
[2021-06-05] MEDS: PROMETHAZINE INJ 12.5 MG in SODIUM CHLORIDE 0.9% 50 ML IV PRN (06:04)
[2021-06-05] MEDS: INSULIN REGULAR 100 UNIT/ML SUBCUT SCH (07:52)
[2021-06-05] MEDS: PANTOPRAZOLE 40 MG TABLET PO SCH (08:21)
[2021-06-05] MEDS: CETIRIZINE 10 MG TABLET PO SCH (08:21)
[2021-06-05] MEDS: HYDROmorphone 1 MG/1 ML SYRINGE IV PRN (08:22)
[2021-06-05] MEDS: FLUTICASONE 50 MCG NASAL SPRAY 16 GM BOTTLE BOTH NARES SCH (08:22)
[2021-06-05] MEDS: ONDANSETRON 4 MG/2 ML VIAL IV PRN (08:22)
[2021-06-05 08:51] VITALS: BP 139/83
[2021-06-05] MEDS ORDERED: INFLUENZA VIRUS VACCINE 0.5 ML SYRINGE IM ONE (09:00)
== END 2021-06-05 11:18 | disposition home or self-care (01) ==
LOC: N.ED 13:21 → INTOOBSV 19:47 → OBSVTOIN 19:47 → N.EDINP 19:47 → SUATTDRO 19:47 → N.TELES 21:55
PROVIDERS: ADMIT Internal Medicine; ATTEND Phlebology